=== PATIENT | male | born 1965 | race Caucasian/White ===

== ENCOUNTER 2024-12-17 12:54 | Emergency (ER) | payer SELFPAY ==
[2024-12-17] VITALS (54 sets, daily range): BP systolic 147–194; BP diastolic 53–80; PULSE 74–115; RESP 12–25; TEMP 36.5; O2SAT 97–100
[2024-12-17 13:20] LABS: Hematocrit 37.3 % (40.0-54.0); Hemoglobin 12.0 g/dL (14.0-18.0); Immature Granulocyte Percent A 0.4 % (0.0-0.0); Lymphocytes Absolute Auto 1.14 K/mm3 (1.10-4.50); Mean Corpuscular HGB Conc 32.2 g/dL (32-36); Mean Corpuscular Hemoglobin 29.3 pg (27.0-31.0); Mean Corpuscular Volume 91.2 fL (78.0-102.0); Nucleated Red Blood Cells Absolute Auto 0.00 K/mm3 (0.00-0.00); Nucleated Red Blood Cells Perc 0.0 % (0-0.0); Platelet Count Result 377 K/mm3 (150-420); Red Blood Count 4.09 M/mm3 (4.70-6.10); White Blood Count 11.4 K/mm3 (4.8-10.8)
[2024-12-17 13:33] LABS: Alanine Aminotransferase 27 U/L (6-50); Albumin Level 4.1 g/dL (3.5-5.1); Alkaline Phosphatase 97 U/L (38-126); Anion Gap 12 mmol/L (4-12); Aspartate Amino Transferase 33 U/L (17-59); Bilirubin,Total 0.9 mg/dL (0.2-1.3); Blood Urea Nitrogen 27 mg/dL (9-20); Calcium 9.1 mg/dL (8.4-10.2); Carbon Dioxide 24 mmol/L (22-30); Chloride 99 mmol/L (98-107); Estimated CRCL calculation 54 ml/min; Estimated Glomerular Filt Rate 58; Osmolality Calculated 311 mOsm/kg (285-295); Sodium 135 mmol/L (137-145); Total Protein 7.4 g/dL (6.3-8.2)
[2024-12-17] MEDS: INSULIN HUMAN REGULAR (*BKC) 1,000 UNITS/10 ML VIAL 8 UNITS IV PUSH (13:38)
[2024-12-17] MEDS: INSULIN REG 100 UNITS/100 ML 100 UNITS/100 ML BAG 8 UNITS IV CONT (13:39)
[2024-12-17] MEDS: SODIUM CHLORIDE 0.9% IV 1,000 ML 999 ML IV CONT ×2 (13:41→14:15)
[2024-12-17 13:43] LABS: Carboxyhemoglobin 1.9 % (0-1.5); HCO3 ABG 21.4 mmol/L (23-29); Methemoglobin ABG 0.3 % (0-1.5); Oxygen Content ABG 17.8 %vol (16.0-22.0); Oxygen Saturation ABG 95.1 % (95-97); PCO2 ABG 34.6 mmHg (35-45); PO2 ABG 78.5 mmHg (80-90); Reduced Hemoglobin 4.8 % (0-1.5)
[2024-12-17 13:44] LABS: Liters per Minute 0.0 LPM; Modified Allen's Test Pass; Site Drawn RIGHT RADIAL
[2024-12-17 13:46] LABS: Glucose 563 mg/dL (65-110)
[2024-12-17 13:47] LABS: Potassium 7.0 mmol/L (3.4-5.0)
--- NOTE | 2024-12-17 13:49 | ECG_ITS ---
Test Date: 2024-12-17 13:55:05 Measurements Intervals Cecil Rate: 92 P: 61 MD: 161 QRS: 18 QRSD: 86 T: 31 QT: 337 QTc: 417 Interpretive Statements SINUS RHYTHM NORMAL ECG No previous ECG available for comparison Electronically Signed On 12-17-2024 14:34:14 CDT by Everette Giles D.O.
--- NOTE | 2024-12-17 13:56 | ED.GENADULT ---
HPI - General Adult General Chief complaint: Unspecified Stated complaint: high blood sugar Time Seen by Provider: 12/17/24 13:07 Related Data Home Medications ?Medication ?Instructions ?Recorded ?Confirmed ?Last Taken ?Type NovaRapid 12/17/24 Unknown History aspirin 81 mg chewable tablet 1 tablet PO DAILY 12/17/24 Unknown History atorvastatin 40 mg tablet (Lipitor) 40 mg PO DAILY 12/17/24 Unknown History bisoprolol fumarate 2.5 mg tablet 2.5 mg PO DAILY 12/17/24 Unknown History ezetimibe 10 mg tablet 10 mg PO DAILY 12/17/24 Unknown History metformin 500 mg tablet 1,000 mg PO BID 12/17/24 Unknown History ramipril 10 mg capsule 10 mg PO DAILY 12/17/24 Unknown History Allergies Allergy/AdvReac Type Severity Reaction Status Date / Time No Known Allergies Allergy Verified 12/17/24 13:30 Course Course Emergency Course: 59 y/o male presents to the ED c/o elevated blood sugar. Patient has insulin pump that he believes is not functioning and he is out of insulin. He is from [place]. PE: no acute findings CBC: H/H 12/37.3, Plt 377; wbc 11.4 with 83 S, 10 L, 5 M CMP: Na 135, K 7, Cl 99, CO 24, Glc 563, BUN 27, Cr 1.27; LFT's normal; Ca 9.1, AG 12 UA: 3+ glc, 2+ketones EKG: NSR, 92, tall peaked T waves, NAC AB.41/ 78/ 35/ 21, 95% ra Tx: youth nutritional monitor, pulse ox, NS w/o, Insulin 8 U IVP, then 8 U/hr drip. Zofran 4 mg IVP, Ca gluconate 2 gm IVPB, Albuterol neb FSBS: [drip started 1345], (1445) 455; (1545) 415; (1645) 369; (1850) 195 (1720) Repeat BMP: Na 138, K 4.9, Cl 104, CO2 25, Glc 315, BUN 28, Cr 1.15 *results are reviewed and discussed with patient. Patient is feeling much better and ready to go Instructions Vital Signs Vital signs: Vital Signs Temperature 36.5 C 12/17/24 12:54 Pulse Rate 91 12/17/24 12:54 Respiratory Rate 16 12/17/24 12:54 Blood Pressure 161/80 H 12/17/24 12:54 Pulse Oximetry 98 12/17/24 12:54 Oxygen Delivery Room Air 12/17/24 12:54 Temperature 36.5 C 12/17/24 12:54 Pulse Rate 84 12/17/24 16:34 Respiratory Rate 16 12/17/24 16:34 Blood Pressure 154/68 H 12/17/24 16:34 Pulse Oximetry 98 12/17/24 16:34 Oxygen Delivery Room Air 12/17/24 14:16 Medical Decision Making Vital Signs Vital Signs: Vital Signs Temperature 36.5 C 12/17/24 12:54 Pulse Rate 91 12/17/24 12:54 Respiratory Rate 16 12/17/24 12:54 Blood Pressure 161/80 H 12/17/24 12:54 Pulse Oximetry 98 12/17/24 12:54 Oxygen Delivery Room Air 12/17/24 12:54 Temperature 36.5 C 12/17/24 12:54 Pulse Rate 84 12/17/24 16:34 Respiratory Rate 16 12/17/24 16:34 Blood Pressure 154/68 H 12/17/24 16:34 Pulse Oximetry 98 12/17/24 16:34 Oxygen Delivery Room Air 12/17/24 14:16 Lab Data 12/17/24 13:15 12/17/24 17:20 Labs: Lab Results 12/17/24 12/17/24 12/17/24 Range/Units 13:04 13:15 14:31 WBC 11.4 H (4.8-10.8) K/mm3 RBC 4.09 L (4.70-6.10) M/mm3 Hgb 12.0 L (14.0-18.0) g/dL Hct 37.3 L (40.0-54.0) % MCV 91.2 (78.0-102.0) fL MCH 29.3 (27.0-31.0) pg MCHC 32.2 (32-36) g/dL RDW 12.1 (11.6-14.4) % Plt Count 377 (150-420) K/mm3 MPV 9.0 (8.7-11.0) fl Immature Gran % (Auto) 0.4 H (0.0-0.0) % Neut % (Auto) 82.6 H (50.0-70.0) % Lymph % (Auto) 10.0 L (18.0-42.0) % [place] % (Auto) 4.7 (2.0-11.0) % Eos % (Auto) 1.8 (1.0-6.0) % Baso % (Auto) 0.5 (0.0-1.0) % Lymph # (Auto) 1.14 (1.10-4.50) K/mm3 [place] # (Auto) 0.53 (0.10-0.90) K/mm3 Eos # (Auto) 0.21 (0.02-0.50) K/mm3 Baso # (Auto) 0.06 (0.00-0.10) K/mm3 Abs Immat Gran (auto) 0.04 H (0.00-0.00) K/mm3 Absolute Neuts (auto) 9.38 H (1.70-7.20) K/mm3 Absolute Nucleated RBC 0.00 (0.00-0.00) K/mm3 Nucleated RBC % 0.0 (0-0.0) % Methemoglobin 0.3 (0-1.5) % Sodium 135 L (137-145) mmol/L Potassium 7.0 H* (3.4-5.0) mmol/L Chloride 99 (98-107) mmol/L Carbon Dioxide 24 (22-30) mmol/L Anion Gap 12 (4-12) mmol/L BUN 27 H (9-20) mg/dL Creatinine 1.27 (0.7-1.3) mg/dL Estim Creat Clear Calc 54 ml/min Estimated GFR 58 L (59 - ) Glucose 563 H* (65-110) mg/dL POC Capillary Glucose > 450 H (65-105) mg/dl Calculated Osmolality 311 H (285-295) mOsm/kg Calcium 9.1 (8.4-10.2) mg/dL Total Bilirubin 0.9 (0.2-1.3) mg/dL AST 33 (17-59) U/L ALT 27 (6-50) U/L Alkaline Phosphatase 97 (38-126) U/L Total Protein 7.4 (6.3-8.2) g/dL Albumin 4.1 (3.5-5.1) g/dL Urine Color Light yellow (Yellow) Urine Appearance Clear (Clear) Urine pH 6.0 (5.0-8.0) Ur Specific Ira 1.010 (1.010-1.020) Urine Protein 1+ H (Negative) Urine Glucose (UA) 3+ H (Negative) Urine Ketones 2+ H (Negative) Ur Blood (Man) Trace-intact H (Negative) Urine Nitrate Negative (Negative) Urine Bilirubin Negative (Negative) Urine Urobilinogen 0.2 (0.2-1.0) mg/dL Ur Leukocyte Esterase Negative (Negative) Urine RBC 0-2 (0-2) /hpf Urine WBC None seen (0-3) /hpf Ur Squamous Epith Cells Rare (Few) /hpf Urine Bacteria Trace (None) /hpf 12/17/24 12/17/24 12/17/24 Range/Units 14:46 15:47 16:53 WBC (4.8-10.8) K/mm3 RBC (4.70-6.10) M/mm3 Hgb (14.0-18.0) g/dL Hct (40.0-54.0) % MCV (78.0-102.0) fL MCH (27.0-31.0) pg MCHC (32-36) g/dL RDW (11.6-14.4) % Plt Count (150-420) K/mm3 MPV (8.7-11.0) fl Immature Gran % (Auto) (0.0-0.0) % Neut % (Auto) (50.0-70.0) % Lymph % (Auto) (18.0-42.0) % [place] % (Auto) (2.0-11.0) % Eos % (Auto) (1.0-6.0) % Baso % (Auto) (0.0-1.0) % Lymph # (Auto) (1.10-4.50) K/mm3 [place] # (Auto) (0.10-0.90) K/mm3 Eos # (Auto) (0.02-0.50) K/mm3 Baso # (Auto) (0.00-0.10) K/mm3 Abs Immat Gran (auto) (0.00-0.00) K/mm3 Absolute Neuts (auto) (1.70-7.20) K/mm3 Absolute Nucleated RBC (0.00-0.00) K/mm3 Nucleated RBC % (0-0.0) % Methemoglobin (0-1.5) % Sodium (137-145) mmol/L Potassium (3.4-5.0) mmol/L Chloride (98-107) mmol/L Carbon Dioxide (22-30) mmol/L Anion Gap (4-12) mmol/L BUN (9-20) mg/dL Creatinine (0.7-1.3) mg/dL Estim Creat Clear Calc ml/min Estimated GFR (59 - ) Glucose (65-110) mg/dL POC Capillary Glucose > 450 H 415 H 369 H (65-105) mg/dl Calculated Osmolality (285-295) mOsm/kg Calcium (8.4-10.2) mg/dL Total Bilirubin (0.2-1.3) mg/dL AST (17-59) U/L ALT (6-50) U/L Alkaline Phosphatase (38-126) U/L Total Protein (6.3-8.2) g/dL Albumin (3.5-5.1) g/dL Urine Color (Yellow) Urine Appearance (Clear) Urine pH (5.0-8.0) Ur Specific Ira (1.010-1.020) Urine Protein (Negative) Urine Glucose (UA) (Negative) Urine Ketones (Negative) Ur Blood (Man) (Negative) Urine Nitrate (Negative) Urine Bilirubin (Negative) Urine Urobilinogen (0.2-1.0) mg/dL Ur Leukocyte Esterase (Negative) Urine RBC (0-2) /hpf Urine WBC (0-3) /hpf Ur Squamous Epith Cells (Few) /hpf Urine Bacteria (None) /hpf 12/17/24 12/17/24 Range/Units 17:20 18:51 WBC (4.8-10.8) K/mm3 RBC (4.70-6.10) M/mm3 Hgb (14.0-18.0) g/dL Hct (40.0-54.0) % MCV (78.0-102.0) fL MCH (27.0-31.0) pg MCHC (32-36) g/dL RDW (11.6-14.4) % Plt Count (150-420) K/mm3 MPV (8.7-11.0) fl Immature Gran % (Auto) (0.0-0.0) % Neut % (Auto) (50.0-70.0) % Lymph % (Auto) (18.0-42.0) % [place] % (Auto) (2.0-11.0) % Eos % (Auto) (1.0-6.0) % Baso % (Auto) (0.0-1.0) % Lymph # (Auto) (1.10-4.50) K/mm3 [place] # (Auto) (0.10-0.90) K/mm3 Eos # (Auto) (0.02-0.50) K/mm3 Baso # (Auto) (0.00-0.10) K/mm3 Abs Immat Gran (auto) (0.00-0.00) K/mm3 Absolute Neuts (auto) (1.70-7.20) K/mm3 Absolute Nucleated RBC (0.00-0.00) K/mm3 Nucleated RBC % (0-0.0) % Methemoglobin (0-1.5) % Sodium 138 (137-145) mmol/L Potassium 4.9 (3.4-5.0) mmol/L Chloride 104 (98-107) mmol/L Carbon Dioxide 25 (22-30) mmol/L Anion Gap 9 (4-12) mmol/L BUN 28 H (9-20) mg/dL Creatinine 1.15 (0.7-1.3) mg/dL Estim Creat Clear Calc 60 ml/min Estimated GFR > 60 (59 - ) Glucose 315 H (65-110) mg/dL POC Capillary Glucose 195 H (65-105) mg/dl Calculated Osmolality 303 H (285-295) mOsm/kg Calcium 9.7 (8.4-10.2) mg/dL Total Bilirubin (0.2-1.3) mg/dL AST (17-59) U/L ALT (6-50) U/L Alkaline Phosphatase (38-126) U/L Total Protein (6.3-8.2) g/dL Albumin (3.5-5.1) g/dL Urine Color (Yellow) Urine Appearance (Clear) Urine pH (5.0-8.0) Ur Specific [place] (1.010-1.020) Urine Protein (Negative) Urine Glucose (UA) (Negative) Urine Ketones (Negative) Ur Blood (Man) (Negative) Urine Nitrate (Negative) Urine Bilirubin (Negative) Urine Urobilinogen (0.2-1.0) mg/dL Ur Leukocyte Esterase (Negative) Urine RBC (0-2) /hpf Urine WBC (0-3) /hpf Ur Squamous Epith Cells (Few) /hpf Urine Bacteria (None) /hpf ABG Data ABG results: 12/17/24 13:15 Puncture Site Right radial ABG pH 7.41 ABG pCO2 34.6 L ABG pO2 78.5 L ABG PO2/FiO2 Ratio Not Reportable ABG HCO3 21.4 L ABG O2 Saturation 95.1 ABG O2 Content 17.8 ABG Base Excess -2.5 L A-a Gradient Not Reportable Oxyhemoglobin 93.0 L Carboxyhemoglobin 1.9 H Reduced Hemoglobin 4.8 H O2 Delivery Device Room air O2 Liters/Min 0.0 Discharge Plan Discharge Clinical Impression: Acute hyperglycemia, Diabetes mellitus, insulin dependent (IDDM), uncontrolled, Acute hyperkalemia Patient Disposition: Home Condition: Improved Instructions: Diabetic Hyperglycemia (ED) Additional Instructions: Continue home medications Follow up Primary Care Provider Patient Language: Romansh Prescriptions: No Action atorvastatin [Lipitor] 40 mg tablet 40 mg PO DAILY bisoprolol fumarate 2.5 mg tablet 2.5 mg PO DAILY ezetimibe 10 mg tablet 10 mg PO DAILY metformin 500 mg tablet 1,000 mg PO BID ramipril 10 mg capsule 10 mg PO DAILY NovaRapid Rx Instructions: 100u/ml insulin solution for injection, 10 ml vials , used together with omnipiod 5, 2ml/3day injection pump aspirin 81 mg tablet,chewable 1 tablet PO DAILY Rx Instructions: 75mg tablet Follow-up/Referrals: UNKNOWN,DOCTOR [Primary Care Provider] Time of Disposition: 19:03
[2024-12-17] MEDS: ONDANSETRON INJ 4 MG/2 ML VIAL IV PUSH (13:58)
[2024-12-17] MEDS: ALBUTEROL SULFATE NEB 2.5 MG/3 ML INH INHALATION (14:05)
[2024-12-17] MEDS: CALCIUM GLUC 2,000 MG/NS 100ML 2,000 MG/100 ML BAG 100 MG IVPB (14:21)
[2024-12-17 14:47] LABS: Add Urine Microscopic? YES; Appearance Urine Clear (Clear); Glucose Urine UA 3+ (Negative); Leukocyte Esterase Ur Negative (Negative); Nitrate Urine Negative (Negative); Specific Grav Ur 1.010 (1.010-1.020)
[2024-12-17 17:35] LABS: Anion Gap 9 mmol/L (4-12); Blood Urea Nitrogen 28 mg/dL (9-20); Calcium 9.7 mg/dL (8.4-10.2); Carbon Dioxide 25 mmol/L (22-30); Chloride 104 mmol/L (98-107); Estimated CRCL calculation 60 ml/min; Estimated Glomerular Filt Rate > 60; Glucose 315 mg/dL (65-110); Osmolality Calculated 303 mOsm/kg (285-295); Potassium 4.9 mmol/L (3.4-5.0); Sodium 138 mmol/L (137-145)
== END 2024-12-17 19:17 | disposition home or self-care (01) ==
PROVIDERS: Emergency Provider Emergency Medicine
DX: E11.65 Type 2 diabetes mellitus with hyperglycemia (principal); E87.5 Hyperkalemia; E78.5 Hyperlipidemia, unspecified; I10 Essential (primary) hypertension; Z79.899 Other long term (current) drug therapy; Z79.82 Long term (current) use of aspirin; Z79.1 Long term (current) use of non-steroidal anti-inflammatories (NSAID)
CPT/HCPCS: 36415; 36600; 80048; 80053; 81001; 82375; 82805; 82948; 83050; 85018; 85025; 93005; 94640; 96361; 96365; 96366; 96368; 96375; 99284; J0613; J1815; J2405; J7030